=== PATIENT | male | born 1960 | race Caucasian/White ===

== ENCOUNTER 2018-09-01 10:23 | Emergency (ER) ==
[2018-09-01 10:35] VITALS: BP 151/94; TEMP 98.5; BMI 32.5
--- NOTE | 2018-09-01 12:07 | CT ---
EXAM: CT LUMBAR SPINE HISTORY: Fall, back pain TECHNIQUE: CT lumbar spine without contrast. 3-mm axial sections. Coronal and sagittal reformation s. COMPARISON: None FINDINGS: There is a mild acute superior endplate compression fracture at L1 with loss of height anteriorly by about 15%. The fracture extends through the posterior elements. There is no retropulsion or listhes is at this level. No other acute fractures are seen. Bilateral chronic pars defects at L5 are prese nt with mild anterior spondylolisthesis of L5 on S1 by 3.4 mm. Sacroiliac joints are intact with mil d to moderate arthropathy. Degenerative disc and facet disease of the spine is seen diffusely most a pparent at L3/L4 and L4/L5 where there is at least mild central canal stenosis and mild bilateral jennie ral foraminal narrowing. No paraspinal hematoma is seen. Incidental note of atherosclerotic disease IMPRESSION: 1. Acute mild compression fracture involving the superior endplate of L1 extending through the poste rior elements with no retropulsion or listhesis. 2. Chronic pars defects at L5 bilaterally with mild listhesis. 3. Degenerative disc and facet disease of the lower spine.
--- NOTE | 2018-09-01 12:08 | CT ---
EXAM: CT of the abdomen pelvis without contrast History: Abdominal and pelvic trauma. Technique: Multiplanar CT images through the abdomen pelvis were obtained without the administration of IV contrast. Findings: Subsegmental atelectasis seen within the lower lungs. Bilateral L5 pars defects with grad e 1 spondylolisthesis. Acute fracture of the superior endplate of L1. There is also a mildly displa barbra fracture of the spinous process at T12. Mild age indeterminate compression fracture involving marshall perior endplate of T11. No gallstones identified by CT. Calcified granulomas are seen within the spleen. No focal liver les ions are identified within limitations of a noncontrast study. There is a splenule. No peripancreat ic inflammation. Adrenal glands are unremarkable. No renal stones and no hydronephrosis. No bowel obstruction. Small fat-containing umbilical hernia. No free air and no ascites. No bladder wall th ickening. Prostate is not enlarged. Fat-containing left inguinal hernia. No abdominal aortic aneur ysm. No perirectal inflammation. Impression: 1. No acute intra-abdominal or pelvic process. 2. L1 compression fracture. 3. Fracture of the T12 spinous process. 4. Age indeterminate mild compression fracture involving superior endplate of T11.
--- NOTE | 2018-09-01 12:09 | CT ---
EXAM: CT BRAIN HISTORY: Fall TECHNIQUE: CT brain without intravenous contrast. 5-mm axial sections with Reformations. COMPARISON: FINDINGS: Brain is unremarkable without evidence of hemorrhage or large vessel distribution recent ischemic in farction. There is no suggestion of acute hydrocephalus or subdural fluid collection. No mass or ma ss effect. Cranium has no acute finding. Mastoid processes are aerated. The visualized paranasal sinuses are clear. IMPRESSION: No acute intracranial process. No skull fracture.
--- NOTE | 2018-09-01 12:10 | CT ---
EXAM: CT of the cervical spine without contrast History: Head and neck trauma. Technique: Multiplanar CT images through the cervical spine were obtained without the administration of IV contrast Findings: No acute fracture or subluxation of the cervical spine. No prevertebral soft tissue swelli ng. Predental space is not widened. Moderate disc space narrowing at C5-6 with endplate sclerosis a nd osteophyte formation. Moderate central canal stenosis at C5-6 secondary to posterior disc osteoph yte complex. Severe left greater than right bilateral bony neural foraminal narrowing at C5-6 second george to uncovertebral and facet hypertrophy. Impression: 1. No acute osseous abnormality of the cervical spine. 2. Degenerative changes at C5-6 as detailed above
--- NOTE | 2018-09-01 12:13 | CT ---
EXAM: CT thoracic spine. HISTORY: Fall. TECHNIQUE: CT thoracic spine without contrast. Multiplanar images provided. FINDINGS: No comparison. Redemonstration of an acute superior endplate compression fracture at L1 with extension of fracture t hrough the posterior elements. No other acute fractures are seen. Bridging lateral and anterior ost eophytic spurs are noted. No spondylolisthesis. No traumatic central canal stenosis or paraspinal h ematoma. See also same day CT thorax report. IMPRESSION: 1. Redemonstration of L1 and regional posterior element fractures. No other acute findings.
--- NOTE | 2018-09-01 12:20 | CT ---
EXAM: CT THORAX HISTORY: Fall. TECHNIQUE: CT thorax without intravenous contrast. Multiplanar images presented. COMPARISON: None FINDINGS: Normal heart size. Atherosclerotic disease is present. A few nonspecific mediastinal and hilar lymp h nodes, some which are partially calcified. There are discoid opacities in the bases which may repr esent atelectasis. A few small calcified granulomas are noted. There is no pneumothorax or pleural fluid. Redemonstration of a an acute superior endplate deformity/fracture at L1 with extension of fracture t hrough the posterior elements. No additional fractures are seen. No peripheral soft tissue hematoma . IMPRESSION: 1. Redemonstration of a mild acute superior plate fracture of L1 with extension through the posterio r elements. No other injuries are identified. There is no pneumothorax. Discoid opacities in the l summer bases may represent atelectasis.
--- NOTE | 2018-09-01 12:38 | ED.PDOC ---
General ED Provider: Dr. JACQUELINE TABOR Chief Complaint: Fall Stated Complaint: fall back pain neck pain Time Seen by Physician: 10:30 (fell 3 days ago ambulatory in [facility] FROM 10 FEET ) Mode of Arrival: Walk-In Information Source: Patient Exam Limitations: No limitations Nursing and Triage Documentation Reviewed and Agree: Yes Does patient meet sepsis criteria?: No System Inflammatory Response Syndrome: Not Applicable Sepsis Protocol: For patient's 13 years and over: Temp is 96.8 and below OR 101 and greater Pulse >90 BPM Resp >20/minute Acutely Altered Mental Status Are patient's symptoms suggestive of a new infection, such as: -Pneumonia -Skin, Soft Tissue -Endocarditis -UTI -Bone, Joint Infection -Implantable Device -Acute Abdominal Infection -Wound Infection -Meningitis -Blood Stream Catheter Infection -Unknown Trauma/Injury Complaint Exam - Trauma Complaint/Exam Location of Pain or Injury: Reports: Head, Neck, Chest, Back Mechanism of Injury: Reports: Fall (10 FEET) Onset/Duration: 3 DAYS AGO Symptoms Are: Still present Timing of Treatment: Delayed Initial Severity: Mild Current Severity: Mild Character: Reports: Aching Aggravating: Reports: Movement Alleviating: Reports: Rest Associated Signs and Symptoms: Denies: LOC, Confusion, Memory loss, Lethargy, Vomiting, Bleeding, Bruising, Swelling, Extremity disuse, Painful respiration, Hoarseness, Dysphagia, Hemoptysis, Significant blood loss Penetrating Injury Risk Factors: Reports: None Related Surgical History: Reports: None Nexus Low Risk Criteria: No post-midline CS tender (DESCRIBE PAIN DULL DISCOMFORT ABLE TO MOVE NECK), No evidence of intoxicat., No Altered LOC, No focal neuro deficit, No distracting injuries Glascow Coma Scale (see protocol): 15 Review of Systems - Review Of Systems Constitutional: Reports: No symptoms Eyes: Reports: No symptoms Ears, Nose, Mouth, Throat: Reports: No symptoms Respiratory: Reports: No symptoms Cardiac: Reports: Chest pain GI: Reports: No symptoms : Reports: No symptoms Musculoskeletal: Reports: Back pain, Neck pain Skin: Reports: No symptoms Neurological: Reports: No symptoms Endocrine: Reports: No symptoms Hematologic/Lymphatic: Reports: No symptoms All Other Systems: Reviewed and Negative Past Medical History - Past Medical History Previously Healthy: Yes Endocrine: Reports: None Cardiovascular: Reports: Hypertension Respiratory: Reports: None Hematological: Reports: None Gastrointestinal: Reports: None Genitourinary: Reports: None Neuro/Psych: Reports: None Musculoskeletal: Reports: None Cancer: Reports: None - Surgical History General Surgical History: Reports: None - Family History Family History: Reports: None - Social History Smoking Status: Current some day smoker, Light tobacco smoker Hx Substance Use: No Alcohol Screening: Heavy Physical Exam - Physical Exam Appearance: Well-appearing, No pain distress, Well-nourished Eyes: GAEL, EOMI, Conjunctiva clear ENT: Ears normal, Nose normal, Oropharynx normal Respiratory: Airway patent, Breath sounds clear, Breath sounds equal, Respirations nonlabored Cardiovascular: RRR, Pulses normal, No rub, No murmur GI/: Soft, Nontender, No masses, Bowel sounds normal, No Organomegaly Musculoskeletal: Normal strength, ROM intact, No edema, No calf tenderness Skin: Warm, Dry, Normal color Neurological: Sensation intact, Motor intact, Reflexes intact, Cranial nerves intact, Alert, Oriented Psychiatric: Affect appropriate, Mood appropriate Interpretation - Radiology Interpretation Radiology Interpretation By: Radiologist Exam Interpreted: CT Scan (ACUTE MILD FRACTURE SUPERIOR END PLATE L1 EXTENDING TO POSTERIOR ELEMENT, FRACTURE T12 SPINOUS PROCESS) Re-Evaluation - Re-Evaluation Time of Re-Evaluation: 12:41 Status: Unchanged Vital Signs Stable: Yes Pain Level: 3/10 LOWER BACK Appearance: NAD Lungs: Clear Skin: Warm and Dry Neuro: Alert and Oriented X3 CV: RRR Additional Comments: IMAGING DISCUSSED NEUROSURGEON PAGED Physician Notification - Case Discussed Physician Notified: UMA Maldonado Time of Notification: 12:57 (TRANSFER PT NOW) Critical Care Note - Critical Care Note Total Time (mins): 0 Course - Course Orders, Labs, Meds: Orders Category Date Time Status CT ABDOMEN/PELVIS WO CONTRAST Stat RADS 09/01/18 10:[address] CERVICAL SPINE W/O CONTRAST Stat RADS 09/01/18 10:[address] CHEST W/O CONTRAST Stat RADS 09/01/18 10:[address] HEAD W/O CONTRAST Stat RADS 09/01/18 11:[address] LUMBAR SPINE W/O CONTRAST Stat RADS 09/01/18 10:[address] THORACIC SPINE W/O CONTRAST Stat RADS 09/01/18 10:56 Completed Vital Signs: Temp Pulse Resp BP Pulse Ox 09/01/18 10:25 98.5 F 76 20 151/94 H 96 Departure - Departure Time of Disposition: 12:57 Disposition: TSF SHORT-TRM HOSP Discharge Problem: Back pain due to injury Closed T12 spinal fracture Qualifiers: Encounter type: initial encounter Fracture morphology: unspecified fracture morphology Qualified Code(s): S22.089A - Unspecified fracture of T11-T12 vertebra, initial encounter for closed fracture Instructions: Acute Low Back Pain (ED) Condition: Good Pt referred to PMD for follow-up: Yes IPMP verified?: No Additional Instructions: Please call your Family Physician as soon as possible to schedule a follow-up appointment. Prescriptions: Hydrocodone Bit/Acetaminophen [[place] 10-325] 1 each PO Q6HR 7 Days #20 tablet Allergies/Adverse Reactions: Allergies Penicillins Adverse Reaction (Verified 09/01/18 10:35) Home Medications: Ambulatory Orders Amlodipine Besylate [Norvasc] 5 mg PO DAILY 09/01/18 Atenolol [Tenormin] 100 mg PO DAILY 09/01/18 Hydrocodone Bit/Acetaminophen [[place] 10-325] 1 each PO Q6HR 7 Days #20 tablet
== END 2018-09-01 13:34 | disposition short-term general hospital (02) ==
LOC: ED 10:23
DX: S22.089A Unspecified fracture of T11-T12 vertebra, initial encounter for closed fracture (principal); S32.010A Wedge compression fracture of first lumbar vertebra, initial encounter for closed fracture; M54.2 Cervicalgia; S09.90XA Unspecified injury of head, initial encounter; R07.89 Other chest pain; W17.89XA Other fall from one level to another, initial encounter; F17.210 Nicotine dependence, cigarettes, uncomplicated
CPT/HCPCS: 99285